=== PATIENT | female | born 1985 | race Two or more races ===

== ENCOUNTER 2016-12-29 12:58 | Outpatient (CLI) | payer OTHER ==
[~2016-12-29] VITALS: Ht 172.7 cm; Wt 93.6 kg
[~2016-12-29 12:58] MED LIST: IBUP-1222 PO; OXYC-302 PO; PREN1TAB56 PO
[2016-12-29 13:05] VITALS: BP 122/78
[2016-12-29] MEDS ORDERED: SILVER NITRATE STICK TP ONE (13:48)
== END 2016-12-29 14:25 | disposition home or self-care (01) ==
LOC: LDOP 12:58
PROVIDERS: ATTEND Obstetrics & Gynecology Gynecology
DX: O46.93 Antepartum hemorrhage, unspecified, third trimester (principal); Z3A.29 29 weeks gestation of pregnancy
CPT/HCPCS: 59025; 99211; G0463